=== PATIENT | male | born 1995 | race Caucasian/White ===

== ENCOUNTER 2019-10-21 05:11 | Emergency (ER) | payer OTHER, SELFPAY ==
--- NOTE | ~2019-10-21 | XR_ITS ---
EXAMINATION: XR hand LT min 3V DATE: 10/21/2019 06:58 INDICATION: Left hand injury TECHNIQUE: Posteroanterior, oblique and lateral views of the left hand were obtained. COMPARISON: None. FINDINGS: One cortical width dorsal displacement and 13 degrees palmar angulation of an oblique extra articular fracture at the diaphysis of the fourth metacarpal. Bone alignment is otherwise normal. No other fra ctures identified. Joint spaces are normal. IMPRESSION: 1. Mildly displaced and angulated left fourth metacarpal shaft fracture. Reviewed, dictated and finalized at location A.
[2019-10-21 05:19] VITALS: BP 142/80; PULSE 110; RESP 18; TEMP 36.4; O2SAT 98
--- NOTE | 2019-10-21 07:31 | ED.UPPEXIN ---
HPI - Extremity Injury (Upper) General Chief Complaint: Extremity Injury, Upper Stated Complaint: left hand pain Time Seen by Provider: 10/21/19 07:03 History of Present Illness HPI narrative: Patient is a 24-year-old male who presents ER with left hand pain. Reports he was pushing up on a table 2 days ago when he felt a snap in his left hand. Denies punching anything. No numbness or tingling to the hand or fingers. Since then has continued to have pain and then had immense pain when trying to last picker a large soda. He is has bruising to the palm and dorsum of the hand. Patient is right-hand dominant. Related Data Allergies Allergy/AdvReac Type Severity Reaction Status Date / Time No Known Allergies Allergy Verified 10/21/19 05:54 Review of Systems Constitutional: Constitutional: Denies chills, Denies fever(s) and Denies weakness Musculoskeletal: Musculoskeletal: Reports arthralgias Comments: Hand swelling Neurologic: Denies focal weakness and Denies numbness PMFSH Past Medical History Medical History (Updated 10/21/19 @ 07:35 by Dennis Giraldo MD) No pertinent past medical history Surgical History Surgical History (Updated 10/21/19 @ 07:33 by Dennis Giraldo MD) No pertinent past surgical history Social History Social History (Updated 10/21/19 @ 07:33 by Dennis Giraldo MD) Smoking status: Current every day smoker Gender identity (if verbalized by the patient): Male Exam Narrative: Exam Narrative: GENERAL: Well-appearing, well-nourished, and in no acute distress. HEAD: Normocephalic, atraumatic. EXTREMITIES: Focused exam left hand reveals tenderness over the fourth metacarpal with slight swelling to the dorsum of the hand. There is bruising present. No tenderness over the wrist. Normal extension and flexion of the digits and wrist. Patient has slight depression of the fourth MCP. Normal radial pulse, brisk capillary refill, no sensory deficit. SKIN: Warm, dry, no rash. Right hand with scattered healing abrasions. NEURO: No focal deficits. Alert and oriented x3. PSYCH: Normal mood and affect. Course Course Emergency Course: Dr. Sotelo will see pt in clinic. Vital Signs Vital signs: Vital Signs Temperature 97.6 F 10/21/19 05:19 Pulse Rate 110 H 07/01/20 05:19 Respiratory Rate 18 10/21/19 05:19 Blood Pressure 142/80 H 10/21/19 05:19 Pulse Oximetry 98 10/21/19 05:19 Temperature 97.6 F 10/21/19 05:19 Pulse Rate 110 H 10/21/19 05:19 Respiratory Rate 18 10/21/19 05:19 Blood Pressure 142/80 H 10/21/19 05:19 Pulse Oximetry 98 10/21/19 05:19 Procedures Orthopedic Splinting/Casting Injury #1: Splinting/Casting Date: 10/21/19 Splinting/Casting Time: 07:34 Side: left Upper Extremity Injury Location: hand Upper Extremity Immobilizer: ulnar gutter Splint: customized in ED Pre-Procedure Neuro Vascular Exam: normal Post-Procedure Neuro Vascular Exam: normal Additional Comments: applied by nurse and tech MDM - Extremity Injury (Upper) Imaging Data Radiologist's impression: ITS Impressions Hand X-Ray 10/21/19 07:00 IMPRESSION: 1. Mildly displaced and angulated left fourth metacarpal shaft fracture. Discharge Plan Discharge Clinical Impression: Closed fracture of 4th metacarpal Patient Disposition: Home, Self-Care Condition: Stable Instructions: Splint Care (ED), Boxer Fracture (ED) Additional Instructions: Return to the ER if you suffer new trauma, you have chest pain or shortness of breath, you cannot keep down food or water, you have additional concerns. Prescriptions: New hydrocodone-acetaminophen 5-325 mg tablet 1 tablet PO Q6H PRN (Reason: pain) Qty: 12 RF: 0 Follow-up/Referrals: PHYSICIAN,ALTERATIONS MANAGER [Primary Care Provider] -
--- NOTE | 2019-10-21 08:00 | PC.NURSE ---
Per EDP via verbal order readback apply a ulnar gutter splint to the hand left.
[2019-10-21 08:30] VITALS: BP 135/76; PULSE 100; RESP 12; O2SAT 99
== END 2019-10-21 08:30 | disposition home or self-care (01) ==
PROVIDERS: Emergency Provider Emergency Medicine
DX: S62.325A Displaced fracture of shaft of fourth metacarpal bone, left hand, initial encounter for closed fracture (principal); F17.200 Nicotine dependence, unspecified, uncomplicated; X50.9XXA Other and unspecified overexertion or strenuous movements or postures, initial encounter
CPT/HCPCS: 29125; 73130; 99284; A9270